=== PATIENT | female | born 1980 | race Caucasian/White ===

== ENCOUNTER 2016-11-02 08:12 | Day surgery (SDC) | payer BC ==
[~2016-11-02] VITALS: Ht 172.7 cm; Wt 72.6 kg
[2016-11-02 08:29] LABS: HCG,QUAL RESULT NEGATIVE (NEGATIVE)
[2016-11-02 09:24] VITALS: O2SAT 100
[2016-11-02] MEDS ORDERED: PROPOFOL 200MG/ 20ML VIAL (DIPRIVAN) IV ONE (12:00)
[2016-11-02] MEDS ORDERED: WATER FOR IRRIGATION,STERILE 1,000 ML IRRIG.SOLN IR ONE (12:00)
[2016-11-02] MEDS ORDERED: NS 100 ML BAG IV ONE (12:00)
[2016-11-02] MEDS ORDERED: MUPIROCIN 2% TOPICAL OINTMENT 22 GM TP ONE (12:00)
[2016-11-02] MEDS ORDERED: LIDOCAINE/EPI 1% 1:100000 20 ML VIAL INJ ONE (12:00)
[2016-11-02] MEDS ORDERED: ONDANSETRON HCL 4 MG/2 ML VIAL IVP ONE (12:00)
[2016-11-02] MEDS ORDERED: OXYMETAZOLINE HCL 0.05% NASAL SPRAY NS ONE (12:00)
[2016-11-02] MEDS ORDERED: SEVOFLURANE 15 MIN GAS INH ONE (12:00)
[2016-11-02] MEDS ORDERED: EPINEPHrine 1 MG/ML AMP IVP ONE (12:00)
[2016-11-02] MEDS ORDERED: DEXAMETHASONE SOD PHOSPHATE 4 MG/ML VIAL IVP ONE (12:00)
[2016-11-02] MEDS ORDERED: MIDAZOLAM HCL 5 MG/5 ML VIAL IVP ONE (12:00)
[2016-11-02] MEDS ORDERED: LR 1,000 ML IV.SOLN IV ONE (12:00)
[2016-11-02] MEDS ORDERED: VECURONIUM BROMIDE 10 MG/VIAL (NORCURON) IV ONE (12:00)
[2016-11-02] MEDS ORDERED: BACITRACIN ZINC 15 GM TOPICAL OINTMENT TP ONE (12:00)
[2016-11-02] MEDS ORDERED: fentaNYL CITRATE 250 MCG/5 ML AMP IV ONE (12:00)
[2016-11-02] MEDS ORDERED: fentaNYL CITRATE/PF 100 MCG/2 ML AMP IVP ONE (12:00)
[2016-11-02] MEDS ORDERED: NS IRRIG SOLN 1000 ML IR ONE (12:00)
[2016-11-02] MEDS ORDERED: LR 1,000 ML IV SCH (15:39)
[2016-11-02] MEDS ORDERED: MORPHINE 4 MG/ML INJ. SYRINGE IVP PRN ×3 (15:45)
[2016-11-02] MEDS ORDERED: ONDANSETRON HCL 4 MG/2 ML VIAL IVP PRN (15:45)
[2016-11-02] MEDS ORDERED: MORPHINE 4 MG/ML INJ. SYRINGE ONE (17:30)
[2016-11-02] MEDS ORDERED: ONDANSETRON HCL 4 MG/2 ML VIAL ONE (17:40)
[2016-11-02 19:27] VITALS: BP 114/60; PULSE 62; RESP 16
== END 2016-11-02 19:30 | disposition home or self-care (01) ==
LOC: SDS 08:12 → SMU 08:15 → SDS 19:30
PROVIDERS: ATTEND Otolaryngology
DX: J34.2 Deviated nasal septum (principal); M95.0 Acquired deformity of nose; J32.9 Chronic sinusitis, unspecified; J34.89 Other specified disorders of nose and nasal sinuses; Z98.890 Other specified postprocedural states
CPT/HCPCS: 30140; 30410; 30520; 31295; 31297; 84703; 88304; 88311; C1726; J0171; J1100; J2250; J2270; J2405; J2704; J3010 ×2; J3490; J7120; 88305